=== PATIENT | male | born 1950 | race Caucasian/White ===

== ENCOUNTER 2022-05-29 09:55 | Outpatient (REF) | payer BC, SELFPAY ==
[2022-05-29 12:01] LABS: Estimated Average Glucose 183 mg/dL
== END 2022-05-29 09:56 | disposition home or self-care (01) ==
LOC: HO.MANLDS 09:55
PROVIDERS: Visit Provider Physician Assistant
DX: R73.01 Impaired fasting glucose (principal)
CPT/HCPCS: 36415; 83036